=== PATIENT | male | born 1995 | race Caucasian/White ===

== ENCOUNTER 2016-09-23 20:28 | Emergency (ER) | payer BC ==
[~2016-09-23] VITALS: Ht 175.3 cm; Wt 72.2 kg
[2016-09-23 20:36] VITALS: TEMP 37; Ht 175.3 cm; Wt 72.2 kg
[2016-09-23 21:18] LABS: BASO % 0.4 %; BASO ABS # 0.03 K/uL (0-0.2); COMPLETE YES; EOS % 1.7 %; HEMATOCRIT 42.3 % (42-52); IG% 0.1 %; LYMPH % 41.2 %; MEAN CELL VOLUME 87.9 fL (80-100); MEAN CORPUSCULAR HEMOGLOBIN 32.4 pg (25-34); MEAN CORPUSCULAR HGB CONC 36.9 g/dl (32-36); MEAN PLATELET VOLUME 10.5 fL (7.4-10.4); NEUT % 49.6 %; PLATELET COUNT 182 K/uL (130-400); RED BLOOD COUNT 4.81 M/uL (4.7-6.1); WHITE BLOOD COUNT 7.53 K/uL (4.8-10.8)
[2016-09-23 21:24] LABS: ISTAT CREATININE 0.9 mg/dl (0.6-1.3); ISTAT IONIZED CALCIUM 1.21 mmol/l (1.12-1.32)
[2016-09-23 21:30] LABS: INR 1.2 (0.9-1.1); PARTIAL THROMBOPLASTIN RATIO 1.1; PROTHROMBIN TIME (PATIENT) 12.5 SECONDS (9.0-12.0)
--- NOTE | 2016-09-23 21:34 | DIAGNOSTIC IMAGING REPORT ---
LEFT RIBS UNILATERAL WITH PA CHEST CLINICAL HISTORY: Left sided chest pain. Shortness of breath. COMPARISON STUDY: No previous studies for comparison. FINDINGS: The erect chest reveals no pneumothorax. No left-sided rib fractures are visualized. There is no focal pulmonary consolidation. IMPRESSION: No evidence of pneumothorax. No left-sided rib fractures identified. Electronically signed by: Aston Dalal M.D. 09/23/2016 9:32 PM Dictated Date/Time: 09/23/2016 9:31 PM
[2016-09-23 21:40] LABS: BUN/CREATININE RATIO 8.1 (10-20); CREATININE 0.93 mg/dl (0.60-1.40)
[2016-09-23 21:45] LABS: ALB/GLOB RATIO 1.3 (0.9-2); CKMB/CK RATIO 1.4 (0-3.0)
[2016-09-23] MEDS ORDERED: NAPR-1169 PO (21:59)
[2016-09-23] MEDS ORDERED: NAPROSYN HOME PACK 250 MG VIAL PO ONE (22:00)
--- NOTE | 2016-09-23 22:00 | EMERGENCY ROOM VISIT NOTE ---
History First contact with patient: 20:40 Chief Complaint: RIB PAIN Stated Complaint: SHARP PAIN IN LEFT CHEST, HURT STO BREATH History of Present Illness The patient is a 21 year old male who presents to the Emergency Department by private vehicle for evaluation of his LEFT sided rib pain. The patient is a cough for the past week. His cough is actually improved, however he developed stabbing pain to the LEFT-sided ribs 2 days ago which is worse with deep inspiration. He reports some mild shortness of breath. The patient has not had similar symptoms in the past. There is been no fevers or chills. He's had no bloody cough. He rates his current discomfort as a 7/10. He does report a history of smoking approximately 2 years ago. He recently flew to and from [place] last week. There is no family history of blood clots or bleeding disorders. He is tried nothing [id number] for symptoms. He denies any fevers, chills, headaches, distance, lightheadedness, palpitations, nausea, vomiting, abdominal pain. Review of Systems A complete 10-point Review of Systems was discussed with the patient, with pertinent positives and negatives listed in the History of Present Illness. All remaining Review of Systems questions can be considered negative unless otherwise specified. Social History Smoking Status: Former Smoker Smokeless Tobacco Use: No Alcohol Use: occasionally Drug Use: none Marital Status: single Housing Status: lives with roommate Occupation Status: [employer] Current/Historical Medications Scheduled Naproxen (Naprosyn), 500 MG PO BID Allergies Coded Allergies: No Known Allergies (Unverified , 09/23/16) Physical Exam Vital Signs Date Time Temp Pulse Resp B/P Pulse Ox O2 Delivery O2 Flow Rate FiO2 09/23/16 22:15 61 16 117/80 97 Room Air 09/23/16 20:36 37.0 66 20 129/85 99 Room Air Pain Rating (0-10): 7 Physical Exam VITAL SIGNS - Vital signs and nursing notes were reviewed. GENERAL - 21-year-old male appearing his stated age who is in no acute distress. Communicates well with provider and answers questions appropriately. HEAD - NC/AT. EYES - PERRL with EOMI bilaterally. Sclera anicteric. Palpebral conjunctiva pink and moist with no injection noted. EARS - No deformities of external structures noted on gross examination bilaterally. No pain elicited with palpation of the tragus bilaterally. External auditory canals without discharge or otorrhea. Tympanic membranes pearly guillen without retraction or bulging. NOSE - Midline and without cyanosis. No epistaxis or purulent drainage noted. Septum midline without deviation or septal hematoma noted. MOUTH/OROPHARYNX - Without perioral cyanosis. Buccal mucosa pink and moist and without leukoplakia. Tongue midline with equal elevation of palate bilaterally. No tonsillar hypertrophy, erythema, or exudates noted. Good dentition noted. NECK - Neck with FROM. Supple to palpation. LUNGS - Chest wall symmetric without accessory muscle use, intercostals retractions, or central cyanosis. Normal vesicular breath sounds CTA B/L. No wheezes, rales, or rhonchi appreciated. CARDIAC - RRR with S1/S2. No murmur, rubs, or gallops appreciated. No reproducible tenderness to palpation appreciated over the anterior chest wall. ABDOMEN - Abdominal contour flat and without pulsations or visible masses. BS normoactive all four quadrants. No tenderness, palpable masses, hepatosplenomegaly, or ascites noted. EXTREMITIES - No clubbing or peripheral cyanosis. No pretibial edema present. +3 /5 radial and dorsalis pedis pulses palpated throughout. +5/5 strength noted in UE/LE bilaterally. PSYCH - A&Ox3 and cooperates fully with examiner. Pt is very pleasant and interacts well with examiner. Medical Decision & Procedures ER Provider Diagnostic Interpretation: Radiological imaging and reports were reviewed by myself. Radiologist's Interpretation as follows: LEFT RIBS UNILATERAL WITH PA CHEST CLINICAL HISTORY: Left sided chest pain. Shortness of breath. COMPARISON STUDY: No previous studies for comparison. FINDINGS: The erect chest reveals no pneumothorax. No left-sided rib fractures are visualized. There is no focal pulmonary consolidation. IMPRESSION: No evidence of pneumothorax. No left-sided rib fractures identified. Laboratory Results 09/23/16 21:08 Red Blood Count 4.81, Mean Corpuscular Volume 87.9, Mean Corpuscular Hemoglobin 32.4, Mean Corpuscular Hemoglobin Concent 36.9, Mean Platelet Volume 10.5, Neutrophils (%) (Auto) 49.6, Lymphocytes (%) (Auto) 41.2, Monocytes (%) (Auto) 7.0, Eosinophils (%) (Auto) 1.7, Basophils (%) (Auto) 0.4, Neutrophils # (Auto) 3.73, Lymphocytes # (Auto) 3.10, Monocytes # (Auto) 0.53, Eosinophils # (Auto) 0.13, Basophils # (Auto) 0.03 09/23/16 21:08 Test 09/23/16 21:08 09/23/16 21:10 09/23/16 21:11 White Blood Count 7.53 K/uL (4.8-10.8) Red Blood Count 4.81 M/uL (4.7-6.1) Hemoglobin 15.6 g/dL (14.0-18.0) Hematocrit 42.3 % (42-52) Mean Corpuscular Volume 87.9 fL (80-100) Mean Corpuscular Hemoglobin 32.4 pg (25-34) Mean Corpuscular Hemoglobin Concent 36.9 g/dl (32-36) Platelet Count 182 K/uL (130-400) Mean Platelet Volume 10.5 fL (7.4-10.4) Neutrophils (%) (Auto) 49.6 % Lymphocytes (%) (Auto) 41.2 % Monocytes (%) (Auto) 7.0 % Eosinophils (%) (Auto) 1.7 % Basophils (%) (Auto) 0.4 % Neutrophils # (Auto) 3.73 K/uL (1.4-6.5) Lymphocytes # (Auto) 3.10 K/uL (1.2-3.4) Monocytes # (Auto) 0.53 K/uL (0.11-0.59) Eosinophils # (Auto) 0.13 K/uL (0-0.5) Basophils # (Auto) 0.03 K/uL (0-0.2) RDW Standard Deviation 39.5 fL (36.4-46.3) RDW Coefficient of Variation 12.3 % (11.5-14.5) Immature Granulocyte % (Auto) 0.1 % Immature Granulocyte # (Auto) 0.01 K/uL (0.00-0.02) Prothrombin Time 12.5 SECONDS (9.0-12.0) Prothromb Time International Ratio 1.2 (0.9-1.1) Activated Partial Thromboplast Time 29.2 SECONDS (21.0-31.0) Partial Thromboplastin Ratio 1.1 Est Creatinine Clear Calc Drug Dose 125.7 ml/min Estimated GFR () 135.5 Estimated GFR (Non- 116.9 BUN/Creatinine Ratio 8.1 (10-20) Calcium Level 9.4 mg/dl (8.5-10.1) Total Bilirubin 0.5 mg/dl (0.2-1) Aspartate Amino Transf (AST/SGOT) 13 U/L (15-37) Alanine Aminotransferase (ALT/SGPT) 26 U/L (12-78) Alkaline Phosphatase 60 U/L (45-117) Total Creatine Kinase 94 U/L (39-308) Creatine Kinase MB 1.3 ng/ml (0.5-3.6) Creatine Kinase MB Ratio 1.4 (0-3.0) Total Protein 7.5 gm/dl (6.4-8.2) Albumin 4.3 gm/dl (3.4-5.0) Globulin 3.2 gm/dl (2.5-4.0) Albumin/Globulin Ratio 1.3 (0.9-2) Bedside D-Dimer 48 ng/mlFEU (0-450) Bedside Troponin I 0.000 ng/ml (0-0.045) Bedside Hemoglobin 15.0 g/dl (14.0-18.0) Bedside Hematocrit 44 % (42-52) Bedside Sodium 142 mEq/L (135-144) Bedside Potassium 4.0 mEq/L (3.3-5.0) Bedside Chloride 100 mEq/L (101-112) Bedside Total CO2 29 mEq/l (24-31) Anion Gap 18.0 mmol/L (16-25) Bedside Blood Urea Nitrogen 8 mg/dl (7-18) Bedside Creatinine 0.9 mg/dl (0.6-1.3) Bedside Glucose (other) 98 mg/dl (70-99) Bedside Ionized Calcium (Keely) 1.21 mmol/l (1.12-1.32) Medications Administered Medications (Trade) Dose Ordered Sig/Concetta Route Start Time Stop Time Status Last Admin Dose Admin Naproxen (Naproxen 250MG Home Pack) 1 homepack UD ONCE PO 09/23/16 22:00 09/23/16 22:01 DC 09/23/16 22:06 1 HOMEPACK Procedure Patient was placed on the equipment monitor phototypesetting and monitored throughout the entire extent of their stay. In addition, the patient's pulse oximetry was monitored throughout the entire stay. Any abnormalities or aberrancies were addressed appropriately. ECG Indication: chest pain, SOB/dyspnea Rate (beats per minute): 59 Rhythm: sinus bradycardia Findings: no acute ischemic change, no ectopy Comparison ECG Date: no prior available ED Course Patient was seen and evaluated by myself. Were drawn, saline lock in place. EKG and chest x-rays of the ribs were obtained. Patient declines anything for pain. Laboratory results demonstrate no acute leukocytosis, worrisome anemia, or bandemia. The patient has no significant electrolyte abnormalities. Cardiac enzymes are negative. Troponin was negative. D-dimer was not elevated. Her x-rays as above. Laboratory results and imaging studies were reviewed with the patient who acknowledges understanding. The patient declines anything for pain while in the emergency department. The patient was provided an intensive spirometer for home. The patient was provided a short course of naproxen. [facility] He was educated on worrisome symptoms for return visit to the emergency department. Patient discharged home afebrile and in good condition. Medical Decision Given the patient's presentation and stated complaint, I did elect to perform the above-mentioned workup. The patient presents today with LEFT-sided pleuritic rib pain. The patient is not hypoxic. He is not tachypnea. Cardiac enzymes and EKG are unremarkable. D-dimer was not elevated. X-ray demonstrate so acute fractures. The patient will be treated with naproxen at home as well as an incentive spirometer. He will follow up [facility] services from today's visit. He will return to the emergency department for any changing or worsening symptoms. Discharged home afebrile and in good condition. In the evaluation and treatment of this patient, the following differential diagnoses were considered: MO, ASC, Dysrhythmia, Angina, Mediastinitis, GERD, Esophagitis, PE, Pneumonia, Bronchitis, Costochondritis, Rib Fracture, Zoster. Impression Primary Impression: Pleuritic chest pain Departure Information Dispostion Home / Self-Care Condition GOOD Prescriptions Naproxen (Naprosyn) 500 Mg Tab 500 MG PO BID for 10 Days, #20 TAB Prov: James Solis PA-C 09/23/16 Referrals [facility] (PCP) Patient Instructions ED Chest Pain Pleurisy, My [facility] Additional Instructions You have been treated in the Emergency Department for your Non-Cardiac Chest Pain - Pleuritic Pain. Laboratory results and Imaging Studies have ruled out any cardiac or pulmonary cause of your chest pain. You have been prescribed Naprosyn (naproxen). This is an anti-inflammatory medication used to help decrease your symptoms and improve your pain. Please take this medication as prescribed. It is best to take this medication with food. Please to not take this antibiotic with other NSAIDS including: Ibuprofen , Advil, Motrin, Aspirin, Aleve, Celebrex, etc. For pain control, you can use the following [id number] medicines (if >12 yo): - Regular strength (325mg/tab) Tylenol (acetaminophen) 2 tabs every 4-6 hours as needed. Do not exceed 12 tablets in a 24 hour period. Avoid taking more than 4 grams (4000 mg) of Tylenol per day. This includes any other sources of acetaminophen you may take on a regular basis. You should schedule a follow-up appointment with your Primary Care Provider in 2 -3 days for further evaluation from today's Emergency Department visit. Please use the incentive spirometer several times per hour while awake to help prevent the development of pneumonia. Return to the Emergency Department if your current symptoms worsen despite treatment course outlined above, or if you develop any of the following symptoms : worsening chest pain, associated jaw/arm pain, nausea, dizziness, shortness of breath, bloody cough, or fainting.
[2016-09-23 22:04] LABS: CALCIUM 9.4 mg/dl (8.5-10.1)
[2016-09-23 22:15] VITALS: BP 117/80; PULSE 61; O2SAT 97
== END 2016-09-23 22:16 | disposition home or self-care (01) ==
LOC: EDBD 20:31 → C.EDB 20:31 → C.EDC 22:16
DX: R07.81 Pleurodynia (principal); Z87.891 Personal history of nicotine dependence